=== PATIENT | male | born 1960 | race African-American/Black ===

== ENCOUNTER → 2019-12-14 | Outpatient (CLI) | payer MEDICAID ==
[~2019-12-14] MED LIST: BUPR150T3 PO; FENTANYL CITRATE/PF 50MCG/ML 2ML VIAL ONE; GLYCOPYRROLATE 0.2 MG/ML 2ML VIAL ONE; IPRA4AER INH; KETOROLAC 30MG/ML VIAL ONE; LIDOCAINE HCL/PF 1% 10 MG/ML 5ML VIAL ONE; METH30CP PO; METOCLOPRAMIDE HCL 10MG/2ML VIAL ONE; MIDAZOLAM HCL 2 MG/2 ML VIAL ONE; MORP30TA66 PO; NEOSTIGMINE METHYLSULFATE 1MG/ML 10 ML VIAL ONE; ONDANSETRON HCL 4MG/2ML INJ ONE; OXYC-515 PO; PROPOFOL 200MG/20ML VIAL IV ONE; ROCURONIUM BROMIDE 10MG/ML VIAL 5ML IV ONE; SODIUM CHLORIDE 0.9% 10ML VIAL ONE; TIOT4MIS2 IH; VARE1TAB21 PO
== END | disposition home or self-care (01) ==
LOC: LAB 11:40
PROVIDERS: ATTEND Neurological Surgery
DX: Z01.818 Encounter for other preprocedural examination (principal); Z11.59 Encounter for screening for other viral diseases
CPT/HCPCS: C9803; U0003

== ENCOUNTER 2019-12-15 06:25 | Inpatient (IN) | payer MEDICAID ==
[~2019-12-15] VITALS: Ht 182.9 cm; Wt 116.1 kg
[2019-12-15] VITALS (51 sets, daily range): BP systolic 72–148; BP diastolic 33–100
[~2019-12-15 06:25] MED LIST changes: -BUPR150T3 PO; -FENTANYL CITRATE/PF 50MCG/ML 2ML VIAL ONE; -GLYCOPYRROLATE 0.2 MG/ML 2ML VIAL ONE; -KETOROLAC 30MG/ML VIAL ONE; -LIDOCAINE HCL/PF 1% 10 MG/ML 5ML VIAL ONE; -METOCLOPRAMIDE HCL 10MG/2ML VIAL ONE; -MIDAZOLAM HCL 2 MG/2 ML VIAL ONE; -NEOSTIGMINE METHYLSULFATE 1MG/ML 10 ML VIAL ONE; -ONDANSETRON HCL 4MG/2ML INJ ONE; -PROPOFOL 200MG/20ML VIAL IV ONE; -ROCURONIUM BROMIDE 10MG/ML VIAL 5ML IV ONE; -SODIUM CHLORIDE 0.9% 10ML VIAL ONE; -TIOT4MIS2 IH; -VARE1TAB21 PO
[2019-12-15] MEDS ORDERED: LACTATED RINGERS 1,000 ML IV SCH (07:45)
[2019-12-15] MEDS ORDERED: MORPHINE SULFATE 4 MG/ML CPJ (NOT FOR IM USE) IV PRN (08:30)
[2019-12-15] MEDS ORDERED: CLINDAMYCIN 900 MG PREMIX 50 ML IV ONE (09:00)
[2019-12-15] MEDS ORDERED: PHENYLEPHRINE HCL 10 MG/ML 1ML (IV VIAL) IV ONE (09:17)
[2019-12-15] MEDS ORDERED: VARE1TAB21 PO (10:17)
[2019-12-15] MEDS ORDERED: TIOT4MIS2 IH (10:17)
[2019-12-15] MEDS ORDERED: BUPR150T3 PO (10:17)
[2019-12-15] MEDS ORDERED: BACITRACIN 50,000 UNITS/VIAL ONE (11:08)
[2019-12-15] MEDS ORDERED: NICARDIPINE 100 MG in SODIUM CHLORIDE 0.9% 60 ML IV PRN (12:00)
[2019-12-15] MEDS: DEXT 5%/LACTATED RINGERS 1,000 ML IV SCH ×2 (12:02→18:40)
[2019-12-15] MEDS ORDERED: ONDANSETRON INJ IV PRN (12:30)
[2019-12-15] MEDS ORDERED: NALOXONE INJ IV PRN (12:30)
[2019-12-15] MEDS ORDERED: DIPHENHYDRAMINE INJ IV PRN (12:30)
[2019-12-15] MEDS: MORPHINE PCA 50MG/50ML IV PRN (13:06)
[2019-12-15] MEDS: CLINDAMYCIN 600MG PREMIX 50 ML IV SCH ×2 (14:06→22:00)
[2019-12-15] MEDS ORDERED: IPRATROPIUM/ALBUTEROL 0.5-3(2.5)MG/3ML NEB HHN PRN (16:00)
[2019-12-15] MEDS: METHYLPHENIDATE 36 MG PO SCH ×2 (21:00→22:00)
[2019-12-16] VITALS (55 sets, daily range): BP systolic 73–176; BP diastolic 30–111
[2019-12-16] MEDS: OXYCODONE HCL/ACETAMINOPHEN 5/325MG TABLET PO PRN ×2 (00:45→04:41)
[2019-12-16] MEDS: DEXT 5%/LACTATED RINGERS 1,000 ML IV SCH ×2 (02:02→09:21)
[2019-12-16] MEDS: CLINDAMYCIN 600MG PREMIX 50 ML IV SCH ×2 (06:59→14:28)
[2019-12-16] MEDS: MORPHINE PCA 50MG/50ML IV PRN (07:49)
[2019-12-16 08:17] LABS: BASOPHILS % 0.6 % (0.0-2.0); EOSINOPHILS % 0.1 % (0.0-5.0); HEMOGLOBIN. 10.6 g/dL (14.0-18.0); LYMPHOCYTES % 15.5 % (20.0-50.0); MEAN CORPUSCULAR HEMOGLOBIN 30.5 pg (28.0-32.0); MEAN CORPUSCULAR VOLUME 89.4 fL (80.0-94.0); MEAN PLATELET VOLUME 9.4 fl (7.4-10.4); MONOCYTES % 12.6 % (2.0-8.0); NEUTROPHILS % 71.2 % (40.0-76.0); PLATELET 135 x1000/uL (130-400); RED BLOOD CELL COUNT 3.47 mill/uL (4.7-6.1); RED CELL DISTRIBUTION WIDTH 14.5 % (11.6-14.6)
[2019-12-16 08:26] LABS: CHLORIDE 108 mEq/L (98-107)
[2019-12-16] MEDS: IPRATROPIUM/ALBUTEROL 0.5-3(2.5)MG/3ML NEB HHN SCH ×3 (08:41→21:32)
[2019-12-16] MEDS: BUDESONIDE 0.5MG/2ML NEB HHN SCH (08:41)
[2019-12-16] MEDS: BUPROPION HCL 150MG TABLET XL 24HR PO SCH (09:21)
[2019-12-16] MEDS: METHYLPHENIDATE 36 MG PO SCH (09:21)
[2019-12-16] MEDS ORDERED: OXYCODONE HCL/ACETAMINOPHEN 5/325MG TABLET PO PRN (16:00)
[2019-12-16] MEDS: ACETAMINOPHEN 325MG TABLET PO PRN (21:29)
[2019-12-17] VITALS (7 sets, daily range): BP systolic 122–159; BP diastolic 70–84
[2019-12-17] MEDS: DEXT 5%/LACTATED RINGERS 1,000 ML IV SCH ×2 (02:37→11:42)
[2019-12-17] MEDS: BUDESONIDE 0.5MG/2ML NEB HHN SCH ×2 (04:35→21:30)
[2019-12-17] MEDS: MORPHINE PCA 50MG/50ML IV PRN (04:41)
[2019-12-17] MEDS: ACETAMINOPHEN 325MG TABLET PO PRN ×2 (04:46→09:15)
[2019-12-17 07:22] LABS: BASOPHILS % 0.3 % (0.0-2.0); EOSINOPHILS % 0.1 % (0.0-5.0); HEMATOCRIT. 30.8 % (42.0-52.0); HEMOGLOBIN. 10.4 g/dL (14.0-18.0); LYMPHOCYTES % 15.2 % (20.0-50.0); MEAN CORPUSCULAR HEMOGLOBIN 29.6 pg (28.0-32.0); MEAN CORPUSCULAR VOLUME 88.3 fL (80.0-94.0); MEAN PLATELET VOLUME 10.1 fl (7.4-10.4); MONOCYTES % 11.8 % (2.0-8.0); NEUTROPHILS % 72.6 % (40.0-76.0); PLATELET 142 x1000/uL (130-400); RED BLOOD CELL COUNT 3.49 mill/uL (4.7-6.1); RED CELL DISTRIBUTION WIDTH 13.8 % (11.6-14.6)
[2019-12-17 07:44] LABS: CHLORIDE 107 mEq/L (98-107)
[2019-12-17 07:57] LABS: TOTAL IRON BINDING CAPACITY 237 ug/dL (250-450)
[2019-12-17 07:58] LABS: LDL CHOLESTEROL 89 mg/dL (5-100)
[2019-12-17 08:00] LABS: HDL CHOLESTEROL 42 mg/dL (40-59)
[2019-12-17 08:24] LABS: FOLIC ACID (FOLATE) SERUM 13.6 ng/mL (>5.38)
[2019-12-17] MEDS: METHYLPHENIDATE 36 MG PO SCH ×2 (09:00→09:14)
[2019-12-17] MEDS: BUPROPION HCL 150MG TABLET XL 24HR PO SCH (09:14)
[2019-12-17] MEDS: IPRATROPIUM/ALBUTEROL 0.5-3(2.5)MG/3ML NEB HHN SCH ×3 (09:44→21:30)
[2019-12-17] MEDS ORDERED: HYDROMORPHONE HCL/PF 2MG/ML CPJ IV PRN (17:00)
[2019-12-17] MEDS: DOCUSATE SODIUM SUGAR FREE 100MG/10ML UDC NG SCH (17:45)
[2019-12-17] MEDS: OXYCODONE HCL/ACETAMINOPHEN 5/325MG TABLET PO PRN (17:46)
[2019-12-18] VITALS: BP 159/58
[2019-12-18] MEDS: DEXT 5%/LACTATED RINGERS 1,000 ML IV SCH ×2 (00:23→14:14)
[2019-12-18] MEDS: IPRATROPIUM/ALBUTEROL 0.5-3(2.5)MG/3ML NEB HHN SCH ×4 (01:33→21:12)
[2019-12-18] MEDS: OXYCODONE HCL/ACETAMINOPHEN 5/325MG TABLET PO PRN ×3 (03:10→14:29)
[2019-12-18 04:00] VITALS: BP 149/73
[2019-12-18] MEDS: MAGNESIUM HYDROXIDE 400MG/5ML 30ML UDC PO PRN (05:43)
[2019-12-18 06:51] LABS: BASOPHILS % 0.5 % (0.0-2.0); EOSINOPHILS % 1.9 % (0.0-5.0); HEMATOCRIT. 29.4 % (42.0-52.0); LYMPHOCYTES % 24.6 % (20.0-50.0); MEAN CORPUSCULAR HEMOGLOBIN 29.9 pg (28.0-32.0); MEAN CORPUSCULAR VOLUME 87.7 fL (80.0-94.0); MEAN PLATELET VOLUME 9.9 fl (7.4-10.4); MONOCYTES % 8.8 % (2.0-8.0); NEUTROPHILS % 64.2 % (40.0-76.0); PLATELET 147 x1000/uL (130-400); RED BLOOD CELL COUNT 3.35 mill/uL (4.7-6.1); RED CELL DISTRIBUTION WIDTH 13.8 % (11.6-14.6)
[2019-12-18 08:00] VITALS: BP 130/78
[2019-12-18] MEDS: DOCUSATE SODIUM SUGAR FREE 100MG/10ML UDC NG SCH ×2 (08:30→08:42)
[2019-12-18] MEDS: BUPROPION HCL 150MG TABLET XL 24HR PO SCH (08:30)
[2019-12-18] MEDS: METHYLPHENIDATE 36 MG PO SCH (08:48)
[2019-12-18] MEDS: BUDESONIDE 0.5MG/2ML NEB HHN SCH (09:27)
[2019-12-18 12:00] VITALS: BP 124/61
[2019-12-18] MEDS: HYDROMORPHONE HCL/PF 2MG/ML CPJ IV PRN ×3 (12:52→23:20)
[2019-12-18] MEDS ORDERED: DOCUSATE SODIUM SUGAR FREE 100MG/10ML UDC NG PRN (14:15)
[2019-12-18 16:00] VITALS: BP 133/61
[2019-12-18] MEDS: ACETAMINOPHEN 325MG TABLET PO PRN (18:30)
[2019-12-18 20:00] VITALS: BP 141/71
[2019-12-19] VITALS: BP 118/65
[2019-12-19] MEDS: OXYCODONE HCL/ACETAMINOPHEN 5/325MG TABLET PO PRN ×4 (02:12→20:12)
[2019-12-19] MEDS: IPRATROPIUM/ALBUTEROL 0.5-3(2.5)MG/3ML NEB HHN SCH ×4 (02:49→20:15)
[2019-12-19 04:00] VITALS: BP 119/53
[2019-12-19] MEDS: BUPROPION HCL 150MG TABLET XL 24HR PO SCH (07:59)
[2019-12-19 08:00] VITALS: BP 142/79
[2019-12-19] MEDS: DEXT 5%/LACTATED RINGERS 1,000 ML IV SCH ×2 (08:00→16:42)
[2019-12-19] MEDS: METHYLPHENIDATE 36 MG PO SCH (09:00)
[2019-12-19] MEDS: HYDROMORPHONE HCL/PF 2MG/ML CPJ IV PRN ×3 (10:19→21:49)
[2019-12-19 12:00] VITALS: BP 140/79
[2019-12-19 16:00] VITALS: BP 126/61
[2019-12-19 20:00] VITALS: BP 132/72
[2019-12-20] VITALS (7 sets, daily range): BP systolic 118–135; BP diastolic 53–90
[2019-12-20] MEDS: HYDROMORPHONE HCL/PF 2MG/ML CPJ IV PRN ×5 (00:45→20:05)
[2019-12-20] MEDS: IPRATROPIUM/ALBUTEROL 0.5-3(2.5)MG/3ML NEB HHN SCH ×4 (01:30→20:42)
[2019-12-20 06:13] LABS: BASOPHILS % 0.9 % (0.0-2.0); EOSINOPHILS % 9.1 % (0.0-5.0); HEMATOCRIT. 29.4 % (42.0-52.0); LYMPHOCYTES % 38.9 % (20.0-50.0); MEAN CORPUSCULAR HEMOGLOBIN 29.8 pg (28.0-32.0); MEAN CORPUSCULAR VOLUME 87.9 fL (80.0-94.0); MEAN PLATELET VOLUME 8.7 fl (7.4-10.4); MONOCYTES % 9.5 % (2.0-8.0); NEUTROPHILS % 41.6 % (40.0-76.0); PLATELET 244 x1000/uL (130-400); RED BLOOD CELL COUNT 3.34 mill/uL (4.7-6.1); RED CELL DISTRIBUTION WIDTH 13.3 % (11.6-14.6)
[2019-12-20 07:35] LABS: CHLORIDE 106 mEq/L (98-107)
[2019-12-20] MEDS: BUPROPION HCL 150MG TABLET XL 24HR PO SCH (08:36)
[2019-12-20] MEDS: OXYCODONE HCL/ACETAMINOPHEN 5/325MG TABLET PO PRN ×3 (08:39→20:07)
[2019-12-20] MEDS: METHYLPHENIDATE 36 MG PO SCH (09:00)
[2019-12-20] MEDS: DEXT 5%/LACTATED RINGERS 1,000 ML IV SCH (14:29)
[2019-12-20] MEDS: BUDESONIDE 0.5MG/2ML NEB HHN SCH ×2 (14:44→20:42)
[2019-12-20] MEDS: CYANOCOBALAMIN 1000MCG/ML VIAL IM SCH ×2 (15:45→18:06)
[2019-12-21] VITALS (7 sets, daily range): BP systolic 110–146; BP diastolic 57–99
[2019-12-21] MEDS: IPRATROPIUM/ALBUTEROL 0.5-3(2.5)MG/3ML NEB HHN SCH ×3 (02:40→15:37)
[2019-12-21] MEDS: OXYCODONE HCL/ACETAMINOPHEN 5/325MG TABLET PO PRN ×4 (04:31→20:57)
[2019-12-21] MEDS: HYDROMORPHONE HCL/PF 2MG/ML CPJ IV PRN ×4 (04:33→20:41)
[2019-12-21] MEDS: BUDESONIDE 0.5MG/2ML NEB HHN SCH (08:04)
[2019-12-21] MEDS: MAGNESIUM HYDROXIDE 400MG/5ML 30ML UDC PO PRN (09:12)
[2019-12-21] MEDS: METHYLPHENIDATE 36 MG PO SCH (09:12)
[2019-12-21] MEDS: CYANOCOBALAMIN 1000MCG/ML VIAL IM SCH (09:13)
[2019-12-21] MEDS: BUPROPION HCL 150MG TABLET XL 24HR PO SCH (09:16)
[2019-12-21] MEDS ORDERED: MAGNESIUM/ALUMINUM HYDROXIDE/SIMETHICONE 30ML UDC PO NR (16:00)
[2019-12-21] MEDS ORDERED: HYDR2SYR2 IV (16:20)
[2019-12-21] MEDS ORDERED: MONT10TA21 PO (16:20)
[2019-12-21] MEDS ORDERED: OXYC-523 PO (16:20)
[2019-12-21] MEDS: DEXT 5%/LACTATED RINGERS 1,000 ML IV SCH ×2 (16:54→17:25)
[2019-12-21] MEDS: CALCIUM CARBONATE 500MG TABLET CHEW PO PRN ×2 (18:53→23:45)
[2019-12-21] MEDS: MONTELUKAST SODIUM 10MG TABLET PO SCH ×2 (20:57→21:00)
[2019-12-22] VITALS: BP 131/84
[2019-12-22] MEDS: HYDROMORPHONE HCL/PF 2MG/ML CPJ IV PRN ×3 (01:46→12:34)
[2019-12-22] MEDS: OXYCODONE HCL/ACETAMINOPHEN 5/325MG TABLET PO PRN (02:11)
[2019-12-22 04:00] VITALS: BP 132/79
[2019-12-22] MEDS: DEXT 5%/LACTATED RINGERS 1,000 ML IV SCH (05:44)
[2019-12-22 07:51] VITALS: BP 145/85
[2019-12-22] MEDS: IPRATROPIUM/ALBUTEROL 0.5-3(2.5)MG/3ML NEB HHN SCH ×2 (08:28→12:00)
[2019-12-22] MEDS: BUDESONIDE 0.5MG/2ML NEB HHN SCH (08:28)
[2019-12-22] MEDS: METHYLPHENIDATE 36 MG PO SCH (09:00)
[2019-12-22] MEDS: CYANOCOBALAMIN 1000MCG/ML VIAL IM SCH (09:13)
[2019-12-22] MEDS: BUPROPION HCL 150MG TABLET XL 24HR PO SCH (09:13)
[2019-12-22 12:00] VITALS: BP 139/81
[2019-12-22 13:15] VITALS: BP 139/81
== END 2019-12-22 18:30 | DRG 304 ==
LOC: OR 06:25 → MICUNO 06:26 → EDUNIT# 07:00 → MICUNO 21:30 → 8WST 12-16 15:46
PROVIDERS: ADMIT Neurological Surgery; ATTEND Internal Medicine
PROC: 0SG1071 Fusion of 2 or more Lumbar Vertebral Joints with Autologous Tissue Substitute, Posterior Approach, Posterior Column, Open Approach (ICD-10-PCS; principal; 2019-12-15)
PROC: 0SG3071 Fusion of Lumbosacral Joint with Autologous Tissue Substitute, Posterior Approach, Posterior Column, Open Approach (ICD-10-PCS; 2019-12-15)
DX: M48.061 Spinal stenosis, lumbar region without neurogenic claudication (principal); M47.16 Other spondylosis with myelopathy, lumbar region; G82.20 Paraplegia, unspecified; E66.01 Morbid (severe) obesity due to excess calories; J45.901 Unspecified asthma with (acute) exacerbation; F41.9 Anxiety disorder, unspecified; J45.909 Unspecified asthma, uncomplicated; F17.210 Nicotine dependence, cigarettes, uncomplicated; G89.4 Chronic pain syndrome; I10 Essential (primary) hypertension; K56.7 Ileus, unspecified; F90.9 Attention-deficit hyperactivity disorder, unspecified type; M47.26 Other spondylosis with radiculopathy, lumbar region; D64.9 Anemia, unspecified; E11.9 Type 2 diabetes mellitus without complications; R26.9 Unspecified abnormalities of gait and mobility; R74.0 Nonspecific elevation of levels of transaminase and lactic acid dehydrogenase [LDH]; D50.9 Iron deficiency anemia, unspecified; D72.829 Elevated white blood cell count, unspecified; Z79.899 Other long term (current) drug therapy; Z68.34 Body mass index [BMI] 34.0-34.9, adult; Z88.0 Allergy status to penicillin; Z88.1 Allergy status to other antibiotic agents
CPT/HCPCS: 36415; 71045; 72100; 74018; 76000; 80048; 80053; 80061; 82607; 82728; 82746; 82962; 83036; 83540; 83550; 84145; 85025; 86850; 86900; 94640; 95863; 95925; 95926; 95928; 95929; 95940; 97116; 97162; 97166; 97530; C1713; J1170; J1885; J2250; J2270; J2370; J2405; J2704; J2710; J2765; J3010; J3420; J3490; J7050; J7121; J7626